=== PATIENT | male | born 1950 | race Caucasian/White ===

== ENCOUNTER 2017-08-09 08:00 | Emergency (ER) | payer OTHER ==
[2017-08-09] MEDS ORDERED: Ibuprofen 800 MG TAB ONE (08:27)
[2017-08-09] MEDS ORDERED: Acetaminophen 500 MG TAB ONE (08:27)
== END 2017-08-09 08:35 | disposition home or self-care (01) ==
LOC: NAV ERS 08:00
DX: Z04.1 Encounter for examination and observation following transport accident (principal); B34.9 Viral infection, unspecified; J11.1 Influenza due to unidentified influenza virus with other respiratory manifestations; F17.210 Nicotine dependence, cigarettes, uncomplicated
CPT/HCPCS: 99283